=== PATIENT | female | born 1940 | race Caucasian/White ===

== ENCOUNTER 2022-08-27 17:07 | Inpatient (IN) | payer MEDICARE, OTHER ==
[~2022-08-27] VITALS: Ht 162.6 cm; Wt 72.1 kg
[2022-08-27 20:00] VITALS: BP 147/77
--- NOTE | 2022-08-27 20:00 | NUR ---
TOOL MAINTENANCE TECHNICIAN NOTES: RECEIVED REPORT FROM WON NARVAEZ FROM [facility]. . PT DIRECT ADMITTED FROM [facility]. TRANSFERRED TO [facility] VIA GURNEY, PLACED IN ROOM 108, BED 1. DIAGNOSIS OF UTI, SYNCOPE. PT AWAKE, ALERT/ORIENTED X3 AND VERBALLY RESPONSIVE. ON ROOM AIR AND PT TOLERATED WELL. O2 SAT 95%. IV ACCESS ON LEFT FOREARM#20G INTACT AND PATENT. NO S/S OF INFILTRATIONS. NO C/O PAIN AT THIS MOMENT. NO ACUTE DISTRESS. ASSESSED WHOLE BODY. NOTED REDNESS ON RT HIP, GROIN AREAS AND SACRUM AREA. NOTED SKIN SCRATCHES ON THE FACE. PT ABLE TO USE THE BED SIDE COMMODE WITH UNSTEADY GAIT. EDUCATE PT TO USE THE CALL LIGHT WHEN SHE HAS TO GET UP. BED ALARM ON. ALL SAFETY MEASURES IN PLACE. BED IN LOWEST POSITION AND LOCKED. SIDE RAILS UP X2, PLACE CALL LIGHT WITH IN REACH. WILL CONTINUE TO MONITOR
--- NOTE | 2022-08-27 22:30 | NUR ---
RN NOTES: TALKED TO PT'S FRIEND, EARL SORIANO [phone]. GAVEHER UPDATES REGARDING PT. WILL VISIT HER TOMORROW.
[2022-08-27] MEDS ORDERED: CEFTRIAXONE 1 G in IV D5W 50 ML IV SCH (23:00)
[2022-08-27] MEDS ORDERED: MAGNESIUM HYDROXIDE 30 ML UDC PO PRN (23:00)
[2022-08-27] MEDS ORDERED: Z GUARD REMEDY 4 OZ OINT TP PRN (23:00)
[2022-08-27] MEDS ORDERED: HYDROCODONE/APAP 5/325MG TABLET PO PRN (23:00)
[2022-08-27] MEDS ORDERED: MAG HYDROX/AL HYDROX/SIMETH 30 ML UDC PO PRN (23:00)
[2022-08-27] MEDS ORDERED: IV NS 0.9% 1,000 ML IV PRN (23:00)
[2022-08-27] MEDS ORDERED: ONDANSETRON HCL/PF 4 MG/2 ML VIAL IVP PRN (23:00)
[2022-08-27 23:29] LABS: BASOPHILS % (AUTO) 0.4 % (0.0-2.0); EOSINOPHILS % (AUTO) 3.8 % (0.0-6.0); HEMATOCRIT 40 % (33-45); LYMPHOCYTES % (AUTO) 23.4 % (20.0-44.0); MEAN CORPUSCULAR HGB CONC 33 g/dl (31.0-36.0); MEAN CORPUSCULAR VOLUME 91 fL (82-100); MONOCYTES # (AUTO) 0.9 K/uL (0.1-1.30); MONOCYTES % (AUTO) 10.1 % (2.0-12.0); NEUTROPHILS # (AUTO) 5.3 K/uL (1.8-8.9); NEUTROPHILS % (AUTO) 62.3 % (43.0-81.0); PLATELET COUNT (AUTO) 319 K/uL (150-450); RED BLOOD CELL COUNT(AUTO) 4.38 MIL/uL (4.0-5.2); WHITE BLOOD COUNT (AUTO) 8.5 K/uL (4.3-11.0)
[2022-08-27 23:40] LABS: CARBON DIOXIDE 26 mmol/L (21-32); CHLORIDE 102 mmol/L (98-107); CREATININE 1.1 mg/dL (0.6-1.3); GLUCOSE 211 mg/dL (74-106); POTASSIUM 4.4 mmol/L (3.5-5.1); SODIUM SERUM 137 mmol/L (136-145); UREA NITROGEN, BLOOD 21 mg/dL (7-18)
[2022-08-28] VITALS: BP 153/83
[2022-08-28] MEDS: ACETAMINOPHEN 325 MG TABLET PO PRN ×2 (00:43→17:08)
--- NOTE | 2022-08-28 01:01 | NUR ---
RN NOTES: PT C/O MILD HEADACHE. TYLENOL 325 MG 2 TABS GIVEN AND PT TOLERATED WELL. WILL CONTINUE TO MONITOR
[2022-08-28 04:00] VITALS: BP 148/84
[2022-08-28 06:16] LABS: BASOPHILS % (AUTO) 0.3 % (0.0-2.0); EOSINOPHILS % (AUTO) 4.7 % (0.0-6.0); HEMATOCRIT 37 % (33-45); HEMOGLOBIN 12.3 g/dL (11.5-14.8); LYMPHOCYTES # (AUTO) 2.1 K/uL (0.8-4.8); LYMPHOCYTES % (AUTO) 24.8 % (20.0-44.0); MEAN CORPUSCULAR HGB CONC 33 g/dl (31.0-36.0); MEAN CORPUSCULAR VOLUME 91 fL (82-100); MONOCYTES # (AUTO) 0.8 K/uL (0.1-1.30); MONOCYTES % (AUTO) 9.7 % (2.0-12.0); NEUTROPHILS # (AUTO) 5.1 K/uL (1.8-8.9); NEUTROPHILS % (AUTO) 60.5 % (43.0-81.0); PLATELET COUNT (AUTO) 298 K/uL (150-450); RED BLOOD CELL COUNT(AUTO) 4.12 MIL/uL (4.0-5.2); WHITE BLOOD COUNT (AUTO) 8.4 K/uL (4.3-11.0)
--- NOTE | 2022-08-28 06:35 | NUR ---
[facility]/ TABULATING SUPERVISOR closing notes Resident resting in bed, breathing even and unlabored, 0 sob, on room air, sating well, 0 angelia noted this shift, NS running @ 75 cc/hr via LFA 20 G, patient is in pleasant mood and cooperative with care, endorsed to AM nurse
[2022-08-28 06:46] LABS: CALCIUM, SERUM 8.5 mg/dL (8.5-10.1); CREATININE 0.9 mg/dL (0.6-1.3); MAGNESIUM 2.2 mg/dL (1.8-2.4); PHOSPHORUS 3.2 mg/dL (2.5-4.9)
--- NOTE | 2022-08-28 07:15 | NUR ---
MAINTENANCE ENGINEER OIL FIELD OPENING NOTES Received pt awake in bed AOX3. Pt is on RA and tolerating it well. IV access on LFA 20G patent and intact running IVF NS @70cc/hr. HOB elevated to pts comfort. Siderails up at all times x2. Call light within reach. Will continue to monitor.
--- NOTE | 2022-08-28 07:34 | NUR ---
RN NOTES: PHARMACY CALLED, THEY DON'T HAVE TPN AT THIS MOMENT. WILL BE READY AFTER 8 AM. ENDORSE TO MORNING SHIFT NURSE Addendum: 08/28/22 at 0735 by BROOKE PEACE RN WRONG CHART
[2022-08-28 08:00] VITALS: BP 119/79
--- NOTE | 2022-08-28 08:36 | NUR ---
CREW TRAINER NOTES Pts home health nurse Jeanne from [facility] called and informed me that she would fax over pts Home medication list.
[2022-08-28] MEDS ORDERED: ACETAMINOPHEN ES 500 MG TABLET PO PRN (09:30)
[2022-08-28] MEDS ORDERED: PETROLATUM,WHITE PACKET 5 GM PACKET TP PRN (09:30)
--- NOTE | 2022-08-28 09:44 | NUR ---
WOUND CARE CONSULT: PT PRESENTS WITH FRAGILE SKIN, SOME BLANCHABLE REDNESS TO SACRAL AREA, RT HIP SCARRING AND DRY ABRASION TO BACK OF HEAD, ALL PRESENT ON ADMISSION. PT DEMONSTRATES ABILITY TO ASSIST WITH TURNING AND REPOSITIONING IN BED. PURE WICK SYSTEM IN PLACE FOR URINARY INCONTINENCE. DISCUSSED SKIN PROTECTION WITH NURSING STAFF. MD IN AGREEMENT WITH PLAN OF CARE.
[2022-08-28] MEDS: CHOLECALCIFEROL 1,000 UNIT TABLET (VIT D3) PO SCH (10:42)
[2022-08-28] MEDS: POTASSIUM CHLORIDE 10 MEQ TABLET.SA PO SCH (10:43)
[2022-08-28] MEDS: METFORMIN 500 MG TABLET PO SCH (10:43)
[2022-08-28] MEDS: FUROSEMIDE 20 MG TABLET PO SCH (10:43)
[2022-08-28] MEDS ORDERED: INSULIN REGULAR, HUMAN 100 UNIT/ML 10 ML VIAL SQ ONE (11:00)
[2022-08-28] MEDS ORDERED: BLOOD SUGAR DIAGNOSTIC 1 EACH STRIP IN SCH (11:00)
[2022-08-28] MEDS ORDERED: DEXTROSE 50%-WATER 50 ML DISP.SYRIN IV PRN ×2 (11:30)
[2022-08-28] MEDS ORDERED: INSULIN REGULAR, HUMAN 100 UNIT/ML 3 ML VIAL SQ PRN (11:30)
[2022-08-28] MEDS ORDERED: INSULIN REGULAR, HUMAN 100 UNIT/ML 10 ML VIAL SQ PRN (11:30)
[2022-08-28] MEDS: BLOOD SUGAR DIAGNOSTIC 1 EACH STRIP VI SCH ×3 (11:59→23:01)
[2022-08-28 12:00] VITALS: BP 170/94
[2022-08-28] MEDS: INSULIN GLARGINE, 100 UNIT/ML CARTRIDGE SQ SCH (12:01)
[2022-08-28] MEDS: *INSULIN REGULAR(HUMULIN R)HUM 100 UNIT/ML VIAL SQ PRN ×3 (12:19→22:53)
[2022-08-28 16:00] VITALS: BP 131/79
[2022-08-28] MEDS: AMLODIPINE BESYLATE 5 MG TABLET PO SCH (17:08)
[2022-08-28] MEDS: CEFTRIAXONE 1 G in IV D5W 50 ML IV SCH (18:11)
--- NOTE | 2022-08-28 18:38 | NUR ---
LOADER TECHNICIAN NOTES All due meds and tx given as ordered. Pt tolerated everything well. All needs attended to. Will endorse to oncoming nurse.
--- NOTE | 2022-08-28 19:30 | NUR ---
COMMERCIAL HOUSEKEEPER OPENING NOTES RECEIVED PATIENT AWAKE IN BED. PATIENT IS A/O TIMES 2 WITH EPISODES OF CONFUSION.REORIENT THE PATIENT. NO PAIN NOON BRANDAN. NO SOB NOTED.ON ROOM AIR AND TOLERATING WELL. NO DISTRESS NOTED. ABLE TO MAKE NEEDS KNOWN IN PARAGUAYAN LANGUAGE. ON TELE MONITOR READING SR 77. OB PURE WICK AND SUCTIONING WELL. ALL NEEDS ATTENDED. IV ACCESS ON THE LFA G # 20 INTACT AND TKO. ALL SAFETY MEASURES IN PLACE. BED LOCKED IN THE LOWEST POSITION. CALL LIGHT AND TABLE IN EASY REACH. SIDE RAILS UP TIMES 2. CALL LIGHT AND TABLE IN EASY REACH. WILL CONTINUE TO MONITOR CLOSELY.
[2022-08-28 20:00] VITALS: BP 139/63
[2022-08-28] MEDS: ENOXAPARIN SODIUM 40 MG/0.4 ML DISP.SYRIN SQ SCH (21:55)
[2022-08-28] MEDS: LATANOPROST EYE DROP 0.005% 2.5 ML BOTTLE EACHEYE SCH (21:56)
--- NOTE | 2022-08-28 21:58 | NUR ---
RN NOTES PRN NORCO 5/325 MG 1 CAP GIVEN PER PATIENT'S REQUEST AT 2158 FOR HEADACHE OF 12/25. WILL REASSESS THE PAIN LEVEL IN 1 HOUR.
[2022-08-29] VITALS (9 sets, daily range): BP systolic 114–142; BP diastolic 55–81
[2022-08-29] MEDS: ACETAMINOPHEN 325 MG TABLET PO PRN (03:28)
--- NOTE | 2022-08-29 04:11 | NUR ---
RN NOTES PRN TYLENOL 650 MG GIVEN PER PATIENT'S REQUEST FOR HEADACHE AT 0328. WILL REASSES PAIN IN 1 HOUR.
[2022-08-29] MEDS: INSULIN REGULAR, HUMAN 100 UNIT/ML 3 ML VIAL SQ PRN ×2 (05:52→22:05)
[2022-08-29] MEDS: BLOOD SUGAR DIAGNOSTIC 1 EACH STRIP VI SCH ×4 (05:53→22:03)
--- NOTE | 2022-08-29 06:35 | NUR ---
INSPECTOR DIALS CLOSING NOTES PATIENT AWAKE IN BED. PATIENT IS A/O TIMES 2 WITH EPISODES OF CONFUSION.REORIENT THE PATIENT. NO PAIN NOTED. NO SOB NOTED.ON ROOM AIR AND TOLERATING WELL. NO DISTRESS NOTED. ABLE TO MAKE NEEDS KNOWN IN [place]GR[place] LANGUAGE. ON TELE MONITOR READING SR 70 WITH FREQUENT PVC. ON O2 INHALATION VIA NASAL CANNULA AT 2L/MIN FOR PREVENTING PVC. PATIENT REFUSED PUREWICK AND USED BED SIDE COMMODE DURING SHIFT. ALL NEEDS ATTENDED. IV ACCESS ON THE LFA G # 20 INTACT AND SL. ALL SAFETY MEASURES IN PLACE. BED LOCKED IN THE LOWEST POSITION. CALL LIGHT AND TABLE IN EASY REACH. SIDE RAILS UP TIMES 2. CALL LIGHT AND TABLE IN EASY REACH.ALL DUE MEDS GIVEN ORDERED. WILL ENDORS EFOR FANTASMA.
[2022-08-29 06:57] LABS: BASOPHILS % (AUTO) 0.3 % (0.0-2.0); EOSINOPHILS % (AUTO) 5.2 % (0.0-6.0); HEMATOCRIT 37 % (33-45); HEMOGLOBIN 12.2 g/dL (11.5-14.8); LYMPHOCYTES # (AUTO) 2.5 K/uL (0.8-4.8); LYMPHOCYTES % (AUTO) 25.9 % (20.0-44.0); MEAN CORPUSCULAR HGB CONC 33 g/dl (31.0-36.0); MEAN CORPUSCULAR VOLUME 91 fL (82-100); MONOCYTES # (AUTO) 0.7 K/uL (0.1-1.30); MONOCYTES % (AUTO) 7.1 % (2.0-12.0); NEUTROPHILS # (AUTO) 5.9 K/uL (1.8-8.9); NEUTROPHILS % (AUTO) 61.5 % (43.0-81.0); PLATELET COUNT (AUTO) 295 K/uL (150-450); RED BLOOD CELL COUNT(AUTO) 4.05 MIL/uL (4.0-5.2); WHITE BLOOD COUNT (AUTO) 9.5 K/uL (4.3-11.0)
[2022-08-29 07:10] LABS: CALCIUM, SERUM 8.7 mg/dL (8.5-10.1); CHLORIDE 97 mmol/L (98-107); CREATININE 0.9 mg/dL (0.6-1.3); GLUCOSE 228 mg/dL (74-106); PHOSPHORUS 3.3 mg/dL (2.5-4.9); POTASSIUM 3.8 mmol/L (3.5-5.1); SODIUM SERUM 131 mmol/L (136-145); UREA NITROGEN, BLOOD 12 mg/dL (7-18)
--- NOTE | 2022-08-29 07:10 | NUR ---
INFORMATICIST OPEN NOTE: ALERT AND ORIENTED TIMES THREE. UNLABORED BREATHING WITH 02 2LPM NC. SATING AT 95 %. REGISTERED APPRAISER SINUS RHYTHM 64. IV ON LEFT FOREARM PATENT. NO S/S OF COMPLICATIONS. HOB ELEVATED. BILATERAL HALF SIDE RAILS UP X2. BED IS LOCKED, IN LOW POSITION, EXIT ALARM ON. CALL LIGHT IN REACH. DENIES PAIN OR DISCOMFORT.
[2022-08-29 07:21] LABS: CARBON DIOXIDE 31 mmol/L (21-32)
[2022-08-29] MEDS: POTASSIUM CHLORIDE 10 MEQ TABLET.SA PO SCH (08:44)
[2022-08-29] MEDS: METFORMIN 500 MG TABLET PO SCH (08:44)
[2022-08-29] MEDS: FUROSEMIDE 20 MG TABLET PO SCH (08:44)
[2022-08-29] MEDS: CHOLECALCIFEROL 1,000 UNIT TABLET (VIT D3) PO SCH (08:44)
[2022-08-29] MEDS: AMLODIPINE BESYLATE 5 MG TABLET PO SCH (08:45)
[2022-08-29] MEDS: INSULIN GLARGINE, 100 UNIT/ML CARTRIDGE SQ SCH (08:54)
[2022-08-29] MEDS ORDERED: CARB1DRO8 EACHEYE (12:05)
[2022-08-29] MEDS ORDERED: CHOL100043 PO (12:05)
[2022-08-29] MEDS ORDERED: POTA10TA10 PO (12:05)
[2022-08-29] MEDS ORDERED: FURO-145 PO (12:05)
[2022-08-29] MEDS ORDERED: LATA2.5D15 EACHEYE (12:05)
[2022-08-29] MEDS ORDERED: METF-881 PO (12:05)
[2022-08-29] MEDS ORDERED: ATOR10TA PO (12:05)
[2022-08-29] MEDS ORDERED: ACET-2605 PO (12:05)
--- NOTE | 2022-08-29 16:00 | NUR ---
Tele box removed.
[2022-08-29] MEDS: CEFTRIAXONE 1 G in IV D5W 50 ML IV SCH (17:34)
--- NOTE | 2022-08-29 18:50 | NUR ---
RN MED SURGE OPEN NOTE: ALERT AND ORIENTED TIMES THREE. UNLABORED BREATHING WITH 02 2LPM NC. SATING AT 95 %. IV ON LEFT FOREARM PATENT. NO S/S OF COMPLICATIONS. ABLE TO ASSIST TO BATHROOM WITH ASSISTANCE. ABLE TO PARTICIPATE WITH PT AND AMBULATE WITH WALKER. BLOOD GLUCOSE MONITORED. NO S/S OF HYPO OR HYPERGLYCEMIA. HOB ELEVATED. BILATERAL HALF SIDE RAILS UP X2. BED IS LOCKED, IN LOW POSITION, EXIT ALARM ON. CALL LIGHT IN REACH. DENIES PAIN OR DISCOMFORT.
--- NOTE | 2022-08-29 20:00 | NUR ---
MS RN OPENING NOTES RECEIVED PATIENT IN BED SLEEPING. A/O X4 ABLE TO MAKE NEEDS KNOWN. PATIENT ON NASAL CANNULA @2LPM TOLERATING WELL. NO SOB NOT IN DISTRESS. WITH IV ACCESS ON LEFT FOREARM G#22 SALINE LOCK. IV SITE NOTED TO BE PATENT, FLUSHING WELL AND INTACT. SAFETY MEASURES IN PLACED; BED LOCKED IN LOWEST POSITION, PATIENT ON SEMI FOWLERS POSITION. SIDE RAILS UP X2, EXIT ALARM ON. CALL LIGHT AND BEDSIDE TABLE WITHIN PATIENTS REACH.
[2022-08-29] MEDS: ENOXAPARIN SODIUM 40 MG/0.4 ML DISP.SYRIN SQ SCH (21:24)
[2022-08-29] MEDS: LATANOPROST EYE DROP 0.005% 2.5 ML BOTTLE EACHEYE SCH (21:46)
--- NOTE | 2022-08-29 22:11 | NUR ---
RN NOTES BLOOD SUGAR CHECKED RESULT IS 234. WAS GIVEN REGULAR INSULIN 6 UNITS BASED ON SLIDING SCALE.
[2022-08-30] VITALS: BP 140/66
--- NOTE | 2022-08-30 00:16 | NUR ---
RN NOTES PATIENT IS HAVING CONFUSION. PATIENT ATTEMPTED TO LEAVE HER ROOM AND PULL OUT HER IV ACCESS. WAS REDIRECTED COUPLE OF TIMES WITH THE NIGHT AUDITOR AND RN BUT IS NOT LISTENING. CHARGE NURSE KATE AND JONATHAN KOENIG MADE AWARE OF. JONATHAN KOENIG GAVE AN ORDER OF BILATERAL SOFT WRIST RESTRAINTS. ORDER RECEIVED AND IS CARRIED OUT.
--- NOTE | 2022-08-30 00:20 | NUR ---
RN NOTES BILATERAL SOFT RESTRAINTS IS PUT ON PATIENTS WRIST. RESTRAINTS ARE SECURED AND PATIENT HAVE GOOD CIRCULATION.
[2022-08-30 04:17] VITALS: BP 110/58
--- NOTE | 2022-08-30 06:35 | NUR ---
MS RN CLOSING NOTES PATIENT IN BED SLEEPING BUT EASILY AWAKEN WHEN CALLED BY NAME AND WITH LIGHT TOUCH ON SHOULDERS. A/O X2-3 WITH EPISODES OF FORGETFULNESS AND CONFUSION. PATIENT ON NASAL CANNULA @2LPM TOLERATING WELL. NO SOB NOT IN DISTRESS. WITH IV ACCESS ON LEFT FOREARM G#22 SALINE LOCK. IV SITE NOTED TO BE PATENT, FLUSHING WELL AND INTACT. PATIENT WITH BILATERAL SOFT MEDICAL RESTRAINT NOTED DUE TO INTERRUPTION OF MEDICAL CARE AND PULLING OUT OF IV ACCESS AND TRYING TO LEAVE THE UNIT. WRIST ASSESSMENT IS DONE WHERE THE RESTRAINT IS PUT. WRIST NOTED TO HAVE GOOD CIRCULATION AND NO REDNESS. ALL DUE MEDICATIONS ARE GIVEN. MADE SURE PATIENT IS COMFORTABLE. SAFETY MEASURES IN PLACED; BED LOCKED IN LOWEST POSITION, PATIENT ON SEMI FOWLERS POSITION. SIDE RAILS UP X3, EXIT ALARM ON. CALL LIGHT AND BEDSIDE TABLE WITHIN PATIENTS REACH. WILL ENDORSE TO NEXT SHIFT NURSE FOR CONTINUITY OF CARE.
[2022-08-30] MEDS: BLOOD SUGAR DIAGNOSTIC 1 EACH STRIP VI SCH ×2 (07:34→11:25)
[2022-08-30 08:00] VITALS: BP 132/70
[2022-08-30] MEDS: POTASSIUM CHLORIDE 10 MEQ TABLET.SA PO SCH (08:37)
[2022-08-30] MEDS: METFORMIN 500 MG TABLET PO SCH (08:39)
[2022-08-30] MEDS: AMLODIPINE BESYLATE 5 MG TABLET PO SCH (08:40)
[2022-08-30] MEDS: FUROSEMIDE 20 MG TABLET PO SCH (08:40)
[2022-08-30] MEDS: CHOLECALCIFEROL 1,000 UNIT TABLET (VIT D3) PO SCH (08:41)
[2022-08-30] MEDS ORDERED: GLUCERNA SHAKE 237 ML CAN PO SCH (09:00)
[2022-08-30] MEDS: INSULIN GLARGINE, 100 UNIT/ML CARTRIDGE SQ SCH (09:27)
--- NOTE | 2022-08-30 10:11 | NUR ---
COVID TEST DONE [facility] ORDER
[2022-08-30] MEDS: *INSULIN REGULAR(HUMULIN R)HUM 100 UNIT/ML VIAL SQ PRN (11:26)
[2022-08-30 12:00] VITALS: BP 124/70
--- NOTE | 2022-08-30 12:00 | NUR ---
GAVE DISCHARGE REPORT TO AVTAR NURSE AT [facility]
--- NOTE | 2022-08-30 13:30 | NUR ---
PATIENT IS DISCHARGED TO [facility]IA AMBULANCE. REPORT GIVEN TO VATAR NURSE AT [facility]. PATIENT IS IN STABLE CONDITION.
--- NOTE | 2022-08-30 13:40 | NUR ---
patient discharge to [facility] via paramedics.
== END 2022-08-30 13:41 | DRG 73 ==
LOC: TELE1 20:06 → MEDSG1 08-29 15:47
PROVIDERS: ADMIT Internal Medicine; ATTEND Internal Medicine
DX: G90.8 Other disorders of autonomic nervous system (principal); G93.41 Metabolic encephalopathy; E87.1 Hypo-osmolality and hyponatremia; Z20.822 Contact with and (suspected) exposure to COVID-19; E78.5 Hyperlipidemia, unspecified; E86.1 Hypovolemia; I10 Essential (primary) hypertension; T50.1X5A Adverse effect of loop [high-ceiling] diuretics, initial encounter; Y92.9 Unspecified place or not applicable; R79.89 Other specified abnormal findings of blood chemistry; E11.65 Type 2 diabetes mellitus with hyperglycemia; E86.0 Dehydration
CPT/HCPCS: 36415; 71045-TC; 76770-TC; 80048-TC; 82962-TC; 83735-TC; 84100-TC; 84484-TC; 85025-TC; 87081-TC; 93307-TC; 97116-TC; 97530-TC; A4223; G0378; J0696; J1650; J1815; J7030; J7050; J7060